=== PATIENT | female | born 2000 ===

== ENCOUNTER 2025-03-26 07:45 | Inpatient (IN) | payer OTHER ==
[~2025-03-26] VITALS: Ht 162.6 cm; Wt 81.6 kg
[2025-03-26 09:01] LABS: URINE APPEARANCE Clear; URINE BILIRRUBIN Negative (NEGATIVE); URINE BLOOD Negative; URINE COLOR Yellow; URINE GLUCOSE Negative (NEGATIVE); URINE KETONE Negative (NEGATIVE); URINE LEUKOCYTE Negative; URINE NITRATE Negative; URINE PROTEIN Negative (NEGATIVE); URINE UROBILINOGEN 0.2 E.U./dl
[2025-03-26 09:02] LABS: URINE BACTERIA 80.3 uL (0.0-1933); URINE CAST 0.00 uL (0.0-1.40); URINE EPITHELIAL CELLS 11.6 uL (0.0-38.8); URINE RBC 8.5 uL (0.0-20.8); URINE WBC 5.9 uL (0.0-23.2)
[2025-03-26 09:04] LABS: BASO % 0.4 % (0.1-1.2); EOS # 0.18 (0.04-0.54); EOS % 2.5 % (0.7-7.0); LYMPH # 2.02 (1.18-3.74); LYMPH % 28.3 % (19.3-53.1); MEAN PLATELET VOLUME 10.60 fl (9.4-12.4); MONO # 0.44 (0.24-0.82); MONO % 6.2 % (4.7-12.5); NEUT # 4.47 (1.56-6.13); NEUT % 62.5 % (34.0-71.1); RED CELL DISTRIBUTION WIDTH 13.4 % (11.6-14.4)
[2025-03-26 09:32] LABS: INR 1.0
[2025-03-26 09:57] LABS: ALT/SGPT 21.0 U/L (12-78); AST/SGOT 7.0 U/L (15-37); BILIRUBIN TOTAL 0.5 mg/dL (0.3-1.2); BUN CREA RATIO 24.0 (7.0-25.0); CREATININE SERUM 0.58 mg/dL (0.55-1.02); GFR 125.66; GLOBULINA 3.0 G/DL (2.4-3.5); GLUCOSE FASTING 99.0 mg/dL (65-100); OSMOLALITY SERUM 282.0 MOSM/KG (275-295)
[2025-03-26] MEDS ORDERED: TREXALL5 MG PO (14:47)
[2025-03-26] MEDS ORDERED: METHIMAZOLE PO (14:48)
[2025-03-26 14:52] VITALS: BP 117/79
[2025-04-02] MEDS ORDERED: DEXAMETHASONE SODIUM PHOSPHATE 4 MG/ML VIAL ONE (08:45)
[2025-04-02] MEDS ORDERED: TAPAZOLE5 MG (10:43)
[2025-04-02] MEDS ORDERED: ONDANSETRON HCL 2 MG/ML VIAL IV PRN (11:30)
[2025-04-02] MEDS ORDERED: ENALAPRILAT DIHYDRATE 1.25 MG/ML VIAL IV PRN (11:30)
[2025-04-02 14:28] VITALS: BP 122/84; O2SAT 100
[2025-04-02] MEDS ORDERED: MAG HYDROX/ALUMINUM HYD/SIMETH 30 ML BLIST.PACK PO ONE (16:35)
[2025-04-02 16:59] VITALS: BP 128/68; O2SAT 100
[2025-04-02] MEDS ORDERED: ACETAMINOPHEN 500 MG GEL..CAP PO SCH (17:00)
[2025-04-02] MEDS ORDERED: CALCITRIOL 0.5 MCG CAPSULE PO SCH (17:00)
[2025-04-02] MEDS ORDERED: DIPHENHYDRAMINE HCL 75 MG,LIDOCAINE HCL 30 ML,MAG HYDROX/ALUMINUM HYD/SIMETH 30 ML PO SCH (17:00)
[2025-04-02] MEDS ORDERED: TRAMADOL HCL 50 MG TABLET PO SCH (17:00)
[2025-04-02] MEDS ORDERED: Calcium Carbonate 1 TAB TABLET PO SCH ×2 (17:00→21:00)
[2025-04-02] MEDS ORDERED: CYCLOBENZAPRINE HCL 5 MG TABLET PO SCH (17:00)
[2025-04-02] MEDS ORDERED: PANTOPRAZOLE SODIUM 40 MG/VIAL VIAL IV PUSH SCH (21:00)
[2025-04-03 05:07] VITALS: BP 110/73; O2SAT 97
[2025-04-03] MEDS ORDERED: LEVOTHYROXINE SODIUM 125 MCG TABLET PO SCH (06:00)
[2025-04-03] MEDS ORDERED: CALCITRIOL 0.5 MCG CAPSULE PO NR (08:00)
[2025-04-03] MEDS ORDERED: CALCIUM CARBONATE/VITAMIN D3 1 TAB TABLET PO NR (08:00)
[2025-04-03] MEDS ORDERED: LORATADINE 10 MG TABLET PO NR (08:30)
[2025-04-03 08:46] VITALS: BP 124/81; O2SAT 98
== END 2025-04-03 12:16 | disposition home or self-care (01) | DRG 627 ==
LOC: O/R 04-02 06:00 → SURH 04-02 07:45 → SURG 04-02 14:06
PROVIDERS: ADMIT Surgery; ATTEND Surgery
PROC: 0GTH0ZZ Resection of Right Thyroid Gland Lobe, Open Approach (ICD-10-PCS; principal; 2025-04-02 09:15)
DX: C73 Malignant neoplasm of thyroid gland (principal)